=== PATIENT | female | born 1955 | race Caucasian/White ===

== ENCOUNTER 2017-04-26 12:52 | Emergency (ER) | payer MEDICAID ==
[~2017-04-26] VITALS: Ht 165.1 cm; Wt 97.6 kg
[~2017-04-26 12:52] MED LIST: AMOX875T PO; GABA-826 PO; INSU100V8 SQ; MONT10TA6 PO; RANI150C PO; SITA100T PO; [UNRECOGNIZED DRUG - OTHER]
[2017-04-26] MEDS ORDERED: ALBUTEROL/IPRATROPIUM 2.5MG/0.5MG, 3 ML NPPB ONE (13:30)
[2017-04-26] MEDS ORDERED: SODIUM CHLORIDE FLUSH 10ML SYR IVF ONE (13:30)
[2017-04-26 13:42] LABS: HEMATOCRIT 39.1 % (34.6-47.8); HEMOGLOBIN 13.3 g/dL (11.7-16.4); WHITE BLOOD COUNT 10.1 x10^3/uL (3.4-10)
[2017-04-26] MEDS ORDERED: ALBUTEROL/IPRATROPIUM 2.5MG/0.5MG, 3 ML ONE (13:47)
[2017-04-26 13:52] LABS: ASPARTATE AMINO TRANSFERASE 16 U/L (15-37); BLOOD UREA NITROGEN 16 mg/dL (7-18)
[2017-04-26 13:56] LABS: IS PT STATUS REG ER OR PRE ER? YES
[2017-04-26] MEDS ORDERED: OMNIPAQUE 350 MG/ML, 100ML BOTTLE ONE (15:06)
[2017-04-26 15:51] VITALS: BP 117/68
== END 2017-04-26 15:53 | disposition home or self-care (01) ==
LOC: ED 15:10
DX: J20.9 Acute bronchitis, unspecified (principal); B96.89 Other specified bacterial agents as the cause of diseases classified elsewhere; J44.9 Chronic obstructive pulmonary disease, unspecified; Z87.891 Personal history of nicotine dependence; K21.9 Gastro-esophageal reflux disease without esophagitis; E11.9 Type 2 diabetes mellitus without complications; I10 Essential (primary) hypertension
CPT/HCPCS: 36415; 71275; 80053; 83880; 84484; 85025; 93005; 94640; 99285; J7512; Q9967; J7620